=== PATIENT | female | born 1935 | race Caucasian/White ===

== ENCOUNTER → 2016-11-17 | Outpatient (CLI) | payer OTHER | LOC: BMCIMAGING 16:28 | PROVIDERS: ATTEND Family Medicine | DX: M25.512 Pain in left shoulder (principal) ==

== ENCOUNTER 2017-02-24 08:18 | Inpatient (IN) | payer OTHER ==
--- NOTE | 2017-02-24 08:36 | CPEKG ---
Heart Rate: 72 RR Interval: 833 P-R Interval: 232 QRSD Interval: 110 QT Interval: 424 QTC Interval: 465 P Marshall: 38 QRS Marshall: 12 T Wave Marshall: 92 EKG Severity - ABNORMAL ECG - EKG Impression: SINUS RHYTHM EKG Impression: FIRST DEGREE AV BLOCK EKG Impression: NONSPECIFIC INTRAVENTRICULAR CONDUCTION DELAY Electronically Signed By: Peng Hannah 24-Feb-2017 08:49:33
--- NOTE | 2017-02-24 08:49 | EDPHY ---
H & P Stated Complaint: Constant CP since 9pm, getting worse. Time Seen by Provider: 02/24/17 08:31 HPI/ROS: CHIEF COMPLAINT: Chest pain HISTORY OF PRESENT ILLNESS: The patient is an 81-year-old female with no cardiac history who comes to the emergency department complaining of left-sided chest pain that radiates to her back. It began about 12 hours ago. 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 She states that last night at dinner she started to have "spell ". She states that she could think of the right words but could not get them out and simply told her friend she did not feel well and went to bed. The middle the night she began having chest pain. No shortness of breath. No pain with movement. No diaphoresis. No nausea vomiting. She denies any history of cardiac disease. No fevers or cough. She did have the flu, shingles and pneumonia vaccine no altered same time about 3 weeks ago. No recent travel. Nonsmoker. She took 4 baby aspirin at home. REVIEW OF SYSTEMS: Constitutional: denies: chills, fever, recent illness, recent injury EENTM: denies: blurred vision, double vision, nose congestion Respiratory: denies: cough, shortness of breath Cardiac: See HPI Gastrointestinal/Abdominal: denies: abdominal pain, diarrhea, nausea, vomiting, blood streaked stools Genitourinary: denies: dysuria, frequency, hematuria, pain Musculoskeletal: denies: joint pain, muscle pain Skin: denies: lesions, rash, jaundice, bruising Neurological: See HPI denies: headache, numbness, paresthesia, tingling, dizziness, weakness Hematologic/Lymphatic: denies: blood clots, easy bleeding, easy bruising Immunologic/allergic: denies: HIV/AIDS, transplant EXAM: GENERAL: Well-appearing, well-nourished and in no acute distress. HEAD: Atraumatic, normocephalic. EYES: Pupils equal round and reactive to light, extraocular movements intact, sclera anicteric, conjunctiva are normal. ENT: TMs normal, nares patent, oropharynx clear without exudates. Moist mucous membranes. NECK: Normal range of motion, supple without lymphadenopathy or JVD. LUNGS: Breath sounds clear to auscultation bilaterally and equal. No wheezes rales or rhonchi. HEART: Regular rate and rhythm without murmurs, rubs or gallops. ABDOMEN: Soft, nontender, normoactive bowel sounds. No guarding, no rebound. No masses appreciated. BACK: No CVA tenderness, no spinal tenderness, step-offs or deformities EXTREMITIES: Normal range of motion, no pitting or edema. No clubbing or cyanosis. NEUROLOGICAL: Cranial nerves II through XII grossly intact. Normal speech, normal gait. 5/5 strength, normal movement in all extremities, normal sensation PSYCH: Normal mood, normal affect. SKIN: Warm, dry, normal turgor, no visible rashes or lesions. Source: Patient Exam Limitations: No limitations - Personal History Current Tetanus Diphtheria and Acellular Pertussis (TDAP): Yes - Medical/Surgical History Hx Asthma: No Hx Chronic Respiratory Disease: Yes Hx Diabetes: No Hx Cardiac Disease: No Hx Renal Disease: No Hx Cirrhosis: No Hx Alcoholism: No Hx HIV/AIDS: No Hx Splenectomy or Spleen Trauma: No Other PMH: Breast Ca. Lung Ca. - Family History Significant Family History: No pertinent family hx - Social History Smoking Status: Never smoked Alcohol Use: Sober Drug Use: None Constitutional: Initial Vital Signs Heart Rate 77 02/24/17 08:23 Respiratory Rate 20 02/24/17 08:23 Blood Pressure 170/95 H 02/24/17 08:23 O2 Sat (%) 96 02/24/17 08:23 O2 Delivery Mode Room Air Allergies/Adverse Reactions: atorvastatin [From Lipitor] Allergy (Verified 02/24/17 08:50) gabapentin Allergy (Verified 02/24/17 11:30) tramadol [From Ultram] Allergy (Verified 02/24/17 11:30) lyrica Allergy (Uncoded 02/24/17 08:27) zocor Allergy (Uncoded 02/24/17 08:27) Home Medications: Medication Instructions Recorded Cholecalciferol Vit D3 [Vitamin D3 2,000 units PO DAILY 02/24/17 2000 units tab (OTC)] Cyanocobalamin [Vitamin B12 (*)] 1,000 mcg PO DAILY 02/24/17 Docusate Sodium [Colace 100 MG (*)] 100 mg PO HS 02/24/17 Escitalopram Oxalate [Lexapro 10 15 mg PO HS 02/24/17 MG] Melatonin [Melatonin 3 MG (*)] 3 mg PO HS 02/24/17 Mirabegron [Myrbetriq] 50 mg PO DAILY 02/24/17 [place]-3 Fatty Acids [Fish Oil 1000 1,000 each PO DAILY 02/24/17 mg (*)] Omeprazole 40 mg PO HS 02/24/17 Pravastatin Sodium 80 mg PO HS 02/24/17 Vitamin E Acetate [VITAMIN E] 400 unit PO DAILY 02/24/17 Medical Decision Making - Diagnostics EKG Interpretation: An EKG obtained and was read and documented in trace view. Please see trace view for full reading and report. Sinus rhythm, first-degree block, ED Course/Re-evaluation: 10:30 a.m. we discussed the lab and x-ray results. Patient continues to have pain. I recommended admission. I will treat with nitroglycerin. She is receiving a GI cocktail currently. 10:50 a.m. I discussed the case the medical service will admit to the PCU. Differential Diagnosis: Partial list of the Differential diagnosis considered include but were not limited to; acute coronary disease, pleurisy, and although unlikely based on the history and physical exam, I also considered dissection, pneumonia, pneumothorax, PE. - Data Points Laboratory Results: Laboratory Results 02/24/17 08:40 02/24/17 08:40 Medications Given: Acetaminophen (Tylenol) 650 mg PO Q4HRS PRN PRN Reason: Pain, Mild/Fever, Can Take PO Stop: 08/23/17 14:01 Last Admin: 02/25/17 09:21 Dose: 650 mg Cholecalciferol (Vitamin D) 2,000 units PO DAILY MIKE Stop: 08/24/17 08:59 Last Admin: 02/25/17 09:16 Dose: 2,000 units Docusate Sodium (Colace) 100 mg PO HS MIKE Stop: 08/23/17 20:59 Last Admin: 02/24/17 20:40 Dose: 100 mg Escitalopram Oxalate (Lexapro) 15 mg PO HS MIKE Stop: 08/23/17 20:59 Last Admin: 02/24/17 20:40 Dose: 15 mg Hydralazine HCl (Apresoline) 5 mg IVP Q6HRS PRN PRN Reason: SBP Greater Than Stop: 08/23/17 14:10 Last Admin: 02/24/17 22:59 Dose: 5 mg Lisinopril (Zestril) 10 mg PO DAILY MIKE Stop: 08/24/17 12:14 Last Admin: 02/25/17 12:52 Dose: 10 mg Melatonin (Melatonin) 3 mg PO HS MIKE Stop: 08/23/17 20:59 Last Admin: 02/24/17 20:40 Dose: 3 mg Miscellaneous Medication (Vitamin E Acetate [Vitamin E]) 400 unit PO DAILY MIKE Stop: 08/24/17 08:59 Last Admin: 02/25/17 11:27 Dose: 400 units Miscellaneous Medication (Mirabegron [Myrbetriq]) 50 mg PO DAILY MIKE Stop: 08/24/17 08:59 Last Admin: 02/25/17 09:17 Dose: 50 mg Evano-3-Gdat Ethyl Esters (Fish Oil) 1,000 mg PO DAILY MIKE Stop: 08/24/17 08:59 Last Admin: 02/25/17 09:15 Dose: 1,000 mg Pantoprazole Sodium (Protonix) 40 mg PO HS MIKE Stop: 08/23/17 20:59 Last Admin: 02/24/17 20:40 Dose: 40 mg Pravastatin Sodium (Pravachol) 80 mg PO HS [facility] Stop: 08/23/17 20:59 Last Admin: 02/24/17 20:40 Dose: 80 mg Vitamin B Complex (Vitamin B12) 1,000 mcg PO DAILY MIKE Stop: 08/24/17 08:59 Last Admin: 02/25/17 09:15 Dose: 1,000 mcg Discontinued Medications Al Hydroxide/Mg Hydroxide (Maalox Susp) 30 ml PO ONCE ONE Stop: 02/24/17 10:28 Last Admin: 02/24/17 10:29 Dose: 30 ml Aspirin (Aspirin) 81 mg PO DAILY MIKE Stop: 08/24/17 12:14 Last Admin: 02/25/17 12:52 Dose: 81 mg Hydralazine HCl (Apresoline) 25 mg PO ONCE ONE Stop: 02/25/17 00:00 Last Admin: 02/25/17 00:11 Dose: 25 mg Hyoscyamine Sulfate (Levsin, Hyomax-Sl) 0.25 mg PO ONCE ONE Stop: 02/24/17 10:28 Last Admin: 02/24/17 10:29 Dose: 0.25 mg Labetalol HCl (Trandate) 200 mg PO ONCE ONE Stop: 02/25/17 01:39 Last Admin: 02/25/17 01:43 Dose: 200 mg Lidocaine (Lidocaine 2% Viscous) 15 ml PO ONCE ONE Stop: 02/24/17 10:28 Last Admin: 02/24/17 10:29 Dose: 15 ml Nitroglycerin (Nitrostat) 0.4 mg SL Q5M PRN PRN Reason: Chest Pain Last Admin: 02/24/17 11:05 Dose: 0.4 mg Departure - Departure Disposition: [facility] Inpatient Acute Clinical Impression: Chest pain Qualifiers: Chest pain type: unspecified Qualified Code(s): R07.9 - Chest pain, unspecified Condition: Fair
[2017-02-24 08:50] LABS: % IMMATURE GRANULYOCYTES 0.4 % (0.0-1.1); ABSOLUTE IMMATURE GRANULOCYTES 0.03 10^3/uL (0.00-0.10); ADD DIFF? NO; ADD MORPH? NO; ADD SCAN? NO; ATYPICAL LYMPHOCYTE FLAG 10 (0-99); FRAGMENT RBC FLAG 0 (0-99); HEMOGLOBIN 15.2 g/dL (12.6-16.3); LEFT SHIFT FLG 0 (0-99); LIPEMIA HEMOLYSIS FLAG 80 (0-99); MEAN CELL HEMOGLOBIN 30.4 pg (27.9-34.1); MEAN PLATELET VOLUME 9.4 fL (8.7-11.7); PLATELET CLUMPS FLAG 10 (0-99); PLATELET COUNT 255 10^3/uL (150-400); RED CELL DISTRIBUTION WIDTH 13.2 % (11.5-15.2)
[2017-02-24 09:06] LABS: ANION GAP 11 mEq/L (8-16); CALCIUM 10.1 mg/dL (8.5-10.4); CARBON DIOXIDE 27 mEq/l (22-31); CHLORIDE 104 mEq/L (97-110); CREATININE 0.7 mg/dL (0.6-1.0); GLOMERULAR FILTRATION RATE > 60; GLUCOSE 91 mg/dL (70-100); POTASSIUM 4.1 mEq/L (3.5-5.2); SODIUM 142 mEq/L (134-144)
[2017-02-24 09:17] LABS: TROPONIN I < 0.012 ng/mL (0.000-0.034)
[2017-02-24 09:20] LABS: INR 0.92 (0.83-1.16); PROTIME(PATIENT) 12.3 SEC (12.0-15.0)
[2017-02-24 09:21] LABS: APTT 32.4 SEC (23.0-38.0)
[2017-02-24] MEDS ORDERED: MAG HYDROX/AL HYDROX/SIMETH 30 ML UDCUP ONE (10:22)
[2017-02-24] MEDS ORDERED: HYOSCYAMINE SULFATE 0.125 MG TAB ONE (10:22)
[2017-02-24] MEDS ORDERED: LIDOCAINE 2% VISCOUS 15 ML UDCUP ONE (10:23)
[2017-02-24] MEDS ORDERED: HYOSCYAMINE SULFATE 0.125 MG TAB PO ONE (10:27)
[2017-02-24] MEDS ORDERED: MAG HYDROX/AL HYDROX/SIMETH 30 ML UDCUP PO ONE (10:27)
[2017-02-24] MEDS ORDERED: LIDOCAINE 2% VISCOUS 15 ML UDCUP PO ONE (10:27)
[2017-02-24] MEDS ORDERED: NITROGLYCERIN 0.4 MG BTL SL PRN (10:31)
[2017-02-24] MEDS ORDERED: ALBUTEROL 3 ML DEYVIAL IH PRN (14:02)
[2017-02-24] MEDS ORDERED: ONDANSETRON DISINTEGRATING 4 MG TAB PO PRN (14:02)
[2017-02-24] MEDS ORDERED: ONDANSETRON 4 MG/2 ML VIAL IVP PRN (14:02)
[2017-02-24] MEDS ORDERED: hydrALAZINE 20 MG/ML VIAL IVP PRN (14:11)
--- NOTE | 2017-02-24 14:50 | PDGENHP ---
History and Physical - Chief Complaint chest pain - History of Present Illness Pleasant 81 yo female who had transient loss of memory last night followed by chest pain. She went to bed and it got better. She was awaken by the chest pain in the middle of the night and she again went back to bed. It recurred this morning and she went to the E.D. She did not have any focal deficits last night and does not at this time. In the ED, an EKG personally reviewed is c/w SR and first degree block. No ischemia changes. Trop was negative. D-Dimer negative. BP was elevated in the low 200's. She was given Nitro with some improvement of her chest pain but is still mildly present. The cp is left substernal and worse with movement and when pressing on the tissue over it. It does not radiate to jaw, neck, hands. It is non exertional. She denies SOB, palpitations, leg edema, Fever, cough, trauma, or other. No recent travel. Non smoker. no constitutional sx's Took a 4 baby aspirin at home PMHx: breast cancer, small cell lung cancer, GERD, depression, insomnia PSHx: Mastectomy-bilateral Soc: No tobacco, no ETOH FmHx: NC History Information - Allergies/Home Medication List Allergies/Adverse Reactions: atorvastatin [From Lipitor] Allergy (Verified 02/24/17 08:50) gabapentin Allergy (Verified 02/24/17 11:30) tramadol [From Ultram] Allergy (Verified 02/24/17 11:30) lyrica Allergy (Uncoded 02/24/17 08:27) zocor Allergy (Uncoded 02/24/17 08:27) Home Medications: Cholecalciferol Vit D3 [Vitamin D3 2000 units tab (OTC)] 2,000 units PO DAILY [Last Taken 02/23/17] Cyanocobalamin [Vitamin B12 (*)] 1,000 mcg PO DAILY 02/24/17 [Last Taken ] Docusate Sodium [Colace 100 MG (*)] 100 mg PO HS 02/24/17 [Last Taken 02/23/17] Escitalopram Oxalate [Lexapro 10 MG] 15 mg PO HS 02/24/17 [Last Taken 02/23/17] Melatonin [Melatonin 3 MG (*)] 3 mg PO HS 02/24/17 [Last Taken 02/23/17] Mirabegron [Myrbetriq] 25 mg PO DAILY 02/24/17 [Last Taken 02/23/17] [place]-3 Fatty Acids [Fish Oil 1000 mg (*)] 1,000 each PO DAILY 02/24/17 [Last Taken 02/23/17] Omeprazole 40 mg PO HS 02/24/17 [Last Taken 02/23/17] Pravastatin Sodium 80 mg PO HS 02/24/17 [Last Taken 02/23/17] Vitamin E Acetate [VITAMIN E] 400 unit PO DAILY 02/24/17 [Last Taken 02/23/17] I have personally reviewed and updated: medical history, social history - Social History Smoking Status: Never smoked Alcohol Use: Sober Drug Use: None Review of Systems Review of Systems: ROS: 10pt was reviewed & negative except for what was stated in HPI & below Physical Exam Physical Exam: Temp Pulse Resp BP Pulse Ox 36.8 C 68 15 166/83 H 91 L 02/24/17 12:39 02/24/17 12:39 02/24/17 12:39 02/24/17 12:39 02/24/17 12:39 Constitutional: no apparent distress, appears nourished Eyes: PERRL, EOMI Ears, Nose, Mouth, Throat: moist mucous membranes, hearing normal Cardiovascular: regular rate and rhythym, other (reproducible left sided chest pain on palpation), No edema Respiratory: no respiratory distress, no rales or rhonchi, clear to auscultation Gastrointestinal: normoactive bowel sounds, soft, non-tender abdomen, No tenderness, No distension Skin: warm Neurologic: AAOx3 Psychiatric: interacting appropriately, not anxious, not encephalopathic Lab Data & Imaging Review 02/24/17 08:40 02/24/17 08:40 WBC 6.87 10^3/uL (3.80-9.50) 02/24/17 08:40 RBC 5.00 10^6/uL (4.18-5.33) 02/24/17 08:40 Hgb 15.2 g/dL (12.6-16.3) 02/24/17 08:40 Hct 46.0 % (38.0-47.0) 02/24/17 08:40 MCV 92.0 fL (81.5-99.8) 02/24/17 08:40 MCH 30.4 pg (27.9-34.1) 02/24/17 08:40 MCHC 33.0 g/dL (32.4-36.7) 02/24/17 08:40 RDW 13.2 % (11.5-15.2) 02/24/17 08:40 Plt Count 255 10^3/uL (150-400) 02/24/17 08:40 MPV 9.4 fL (8.7-11.7) 02/24/17 08:40 Neut % (Auto) 43.0 % (39.3-74.2) 02/24/17 08:40 Lymph % (Auto) 43.5 % (15.0-45.0) 02/24/17 08:40 [place] % (Auto) 8.7 % (4.5-13.0) 02/24/17 08:40 Eos % (Auto) 3.1 % (0.6-7.6) 02/24/17 08:40 Baso % (Auto) 1.3 % (0.3-1.7) 02/24/17 08:40 Nucleat RBC Rel Count 0.0 % (0.0-0.2) 02/24/17 08:40 Absolute Neuts (auto) 2.95 10^3/uL (1.70-6.50) 02/24/17 08:40 Absolute Lymphs (auto) 2.99 10^3/uL (1.00-3.00) 02/24/17 08:40 Absolute Monos (auto) 0.60 10^3/uL (0.30-0.80) 02/24/17 08:40 Absolute Eos (auto) 0.21 10^3/uL (0.03-0.40) 02/24/17 08:40 Absolute Basos (auto) 0.09 10^3/uL (0.02-0.10) 02/24/17 08:40 Absolute Nucleated RBC 0.00 10^3/uL (0-0.01) 02/24/17 08:40 Immature Gran % 0.4 % (0.0-1.1) 02/24/17 08:40 Immature Gran # 0.03 10^3/uL (0.00-0.10) 02/24/17 08:40 PT 12.3 SEC (12.0-15.0) 02/24/17 08:40 INR 0.92 (0.83-1.16) 02/24/17 08:40 APTT 32.4 SEC (23.0-38.0) 02/24/17 08:40 D-Dimer 0.45 ug/mLFEU (0.00-0.50) 02/24/17 08:40 Sodium 142 mEq/L (134-144) 02/24/17 08:40 Potassium 4.1 mEq/L (3.5-5.2) 02/24/17 08:40 Chloride 104 mEq/L (97-110) 02/24/17 08:40 Carbon Dioxide 27 mEq/l (22-31) 02/24/17 08:40 Anion Gap 11 mEq/L (8-16) 02/24/17 08:40 BUN 14 mg/dL (7-23) 02/24/17 08:40 Creatinine 0.7 mg/dL (0.6-1.0) 02/24/17 08:40 Estimated GFR > 60 02/24/17 08:40 Glucose 91 mg/dL (70-100) 02/24/17 08:40 Calcium 10.1 mg/dL (8.5-10.4) 02/24/17 08:40 Troponin I < 0.012 ng/mL (0.000-0.034) 02/24/17 08:40 Assessment & Plan Assessment: #HTN Urgency #Chest pain, likely atypical, ?muscular. W/U negative thus far #transient memory loss, ?TIA #GERD, chornic: hx does not appear c/w acute GERD episode Plan: -admit -Cardiac w/u -TTE -Tele -check risk factors -check neck doppler -She does not have any focal weakness at this time -May need BP med tomorrow, BB vs YENI-I -For now hold off on stress test, although may consider in the a.m. pending w/u and clinical course -SCDs -Full Code
--- NOTE | 2017-02-24 16:15 | ECHO ---
[email or web address] [address] Main: [phone] Fax: [email or web address] Echocardiogram Name: MARYANNE MONTES DE OCA MR#: [id number] Study Date: 02/24/2017 Study Time: 02:45 PM Date of : 1935 Age: 81 year(s) Height: 165.1 cm (65 in.) Weight: 68.49 kg (151 lb.) BSA: 1.76 m2 Gender: Female Examination: Echo Indication: Chest Pain Image Quality: Contrast: Requested by: Janes Dorman BP: 166 mmHg/83 mmHg Heart Rate: Rhythm: Indication: Chest Pain Procedure Staff Consulting Project Director: Shawna Louis Reading Physician: Bacilio Roland Requesting Provider: Conclusions: Normal size left ventricle. Mild concentric LV hypertrophy. EF is 77 %. The mitral valve is normal in appearance and function. Mild mitral valve regurgitation is present. The aortic valve is tri-leaflet. There is mild thickening of the aortic cusps. Mild to moderate aortic valve regurgitation. Mildly dilated ascending aorta measuring 3.8 cm. No pericardial effusion. Measurements: Chambers Valvular Assessment AV/MV Valvular Assessment TV/PV Normal Normal Normal Name Value Range Name Value Range Name Value Range Ao Neli (MM): 3.3 cm (2.2 cm-3.7 AV meanP mmHg ( - ) cm) MV E Vmax: 0.60 m/s ( - ) IVSd (2D): 1.1 cm (0.6 cm-1.1 MV A Vmax: 0.78 m/s ( - ) cm) MV E/A: 0.77 ( - ) LVDd (2D): 4.6 cm (3.9 cm-5.3 cm) LVDs (2D): 2.7 cm (2.1 cm-4 cm) LVPWd (2D): 1.1 cm ( - ) LVEF (MOD4): 77 % (>=55 %) Continued Measurements: Chambers Valvular Assessment AV/MV Patient: MARYANNE MONTES DE OCA Study Date: 02/24/2017 Page 1 of 2 02:45 PM Name Value Name Value LADs: 3.4 cm MV E/E' Septal: 11.20 LADs Lon.1 cm MV E/E' Lateral: 9.40 LA Area: 12.3 cm2 Additional Vessels Name Value Ao Ascendin.8 cm Findings: Left Ventricle: Normal size left ventricle. Mild concentric LV hypertrophy. Normal global systolic LV function. EF is 77 %. No regional wall motion abnormality. Right Ventricle: Normal size right ventricle. Left Atrium: The left atrium is normal in size. Right Atrium: The right atrium is normal in size. Mitral Valve: The mitral valve is normal in appearance and function. Mild mitral valve regurgitation is present. Aortic Valve: The aortic valve is tri-leaflet. There is mild thickening of the aortic cusps. Mild to moderate aortic valve regurgitation. Tricuspid Valve: The tricuspid valve is normal in appearance and function. Mild tricuspid regurgitation is present. Pulmonic Valve: The pulmonic valve is normal in appearance and function. Aorta: The aorta is normal. Mildly dilated ascending aorta measuring 3.8 cm. Pericardium: No pericardial effusion. (No Signature Object) Patient: MARYANNE MONTES DE OCA Study Date: 02/24/2017 Page 2 of 2 02:45 PM [id number]
[2017-02-24] MEDS: PRAVASTATIN SODIUM 40 MG TAB PO SCH (20:40)
[2017-02-24] MEDS: PANTOPRAZOLE SODIUM 40 MG TAB PO SCH (20:40)
[2017-02-24] MEDS: ESCITALOPRAM OXALATE 10 MG TAB PO SCH (20:40)
[2017-02-24] MEDS: MELATONIN 3 MG TAB PO SCH (20:40)
[2017-02-24] MEDS: DOCUSATE SODIUM 100 MG CAP PO SCH (20:40)
[2017-02-24] MEDS ORDERED: NON-FORMULARY NEW DRUG (Omeprazole [Omeprazole] 40 MG) PO SCH (21:00)
[2017-02-24] MEDS ORDERED: NON-FORMULARY NEW DRUG (Pravastatin Sodium [Pravastatin Sodium] 80 MG) PO SCH (21:00)
[2017-02-24] MEDS ORDERED: hydrALAZINE 25 MG TAB PO ONE (23:59)
[2017-02-25] MEDS ORDERED: LABETALOL HCL 200 MG TAB PO ONE (01:38)
[2017-02-25 05:12] LABS: % IMMATURE GRANULYOCYTES 0.4 % (0.0-1.1); ABSOLUTE IMMATURE GRANULOCYTES 0.03 10^3/uL (0.00-0.10); ADD DIFF? NO; ADD MORPH? NO; ADD SCAN? NO; ATYPICAL LYMPHOCYTE FLAG 10 (0-99); FRAGMENT RBC FLAG 0 (0-99); HEMATOCRIT 41.5 % (38.0-47.0); LEFT SHIFT FLG 0 (0-99); LIPEMIA HEMOLYSIS FLAG 80 (0-99); MEAN CELL HEMOGLOBIN CONCENTR. 33.7 g/dL (32.4-36.7); MEAN CELL VOLUME 91.8 fL (81.5-99.8); MEAN PLATELET VOLUME 9.8 fL (8.7-11.7); PLATELET CLUMPS FLAG 10 (0-99); PLATELET COUNT 237 10^3/uL (150-400); RED BLOOD CELL COUNT 4.52 10^6/uL (4.18-5.33); RED CELL DISTRIBUTION WIDTH 13.2 % (11.5-15.2)
[2017-02-25 05:40] LABS: ANION GAP 9 mEq/L (8-16); CALCIUM 9.8 mg/dL (8.5-10.4); CARBON DIOXIDE 25 mEq/l (22-31); CHLORIDE 104 mEq/L (97-110); CHOLESTEROL 178 mg/dL (140-220); CHOLESTEROL/HDL RATIO 3.96 RATIO (1.00-4.44); CREATININE 0.8 mg/dL (0.6-1.0); GLOMERULAR FILTRATION RATE > 60; GLUCOSE 144 mg/dL (70-100); HIGH DENSITY LIPOPROTEIN 45 mg/dL (40-85); LDL/HDL RATIO 2.18 RATIO (1.00-3.22); LOW DENSITY LIPOPROTEIN 98 mg/dL (80-100); MAGNESIUM 2.1 mg/dL (1.6-2.3); NON-HIGH DENSITY LIPOPROTEIN 133 mg/dL (90-129); POTASSIUM 4.1 mEq/L (3.5-5.2); SODIUM 138 mEq/L (134-144); TRIGLYCERIDE 176 mg/dL (35-135); VERY LOW DENSITY LIPOPROTEINS 35 mg/dL (8-25)
[2017-02-25 05:45] LABS: TROPONIN I < 0.012 ng/mL (0.000-0.034)
--- NOTE | 2017-02-25 08:43 | CPEKG ---
Heart Rate: 71 RR Interval: 845 P-R Interval: 200 QRSD Interval: 116 QT Interval: 412 QTC Interval: 448 P [place]: 0 QRS [place]: 47 T Wave [place]: 88 EKG Severity - ABNORMAL ECG - EKG Impression: SINUS RHYTHM EKG Impression: INCOMPLETE RIGHT BUNDLE BRANCH BLOCK Electronically Signed By: William Altman 25-Feb-2017 15:56:40
[2017-02-25] MEDS ORDERED: NON-FORMULARY NEW DRUG (Mirabegron [Myrbetriq] 25 MG) PO SCH (09:00)
[2017-02-25] MEDS ORDERED: VITAMIN E ACETATE 400 UNIT PO SCH (09:00)
[2017-02-25] MEDS: CYANO/VITAMIN B12 1000 MCG TAB PO SCH (09:15)
[2017-02-25] MEDS: OMEGA-3 FATTY ACIDS 1,000 MG CAP PO SCH (09:15)
[2017-02-25] MEDS: CHOLECALCIFEROL VIT D3 2,000 UNITS TAB/CAP PO SCH (09:16)
[2017-02-25] MEDS: Mirabegron [Myrbetriq] 50 MG PO SCH (09:17)
[2017-02-25] MEDS: ACETAMINOPHEN 325 MG TAB PO PRN ×2 (09:21→21:04)
[2017-02-25 09:56] LABS: HEMOGLOBIN A1C 5.8 % (4.0-6.0)
[2017-02-25] MEDS: Vitamin E 400 UNIT PO SCH (11:27)
[2017-02-25] MEDS ORDERED: ASPIRIN 81 MG CHEWABLE TAB PO SCH (12:15)
--- NOTE | 2017-02-25 12:20 | HOSPPROG ---
Hospitalist Progress Note Assessment/Plan: 81 yo female admited for HTN urgency and chest pain. Cardiac w/u has been negative. Corotid US shows mild to moderate atherosclerosis. She does not have focal deficits. Last night she had HTN and then hypotension after BP meds were given #HTN Urgency #Chest pain, likely atypical, ?muscular. W/U negative thus far #transient memory loss, ?TIA #GERD, chornic: hx does not appear c/w acute GERD episode #HLD, on statin Plan: -will schedule Lisinopril 10mg daily. Her repeat BP this morning is in the 130' s systolic. -start Aspirin -hold off on stress test. She does not have any cp or SOB at this time. Negative trops. Her son in law is a retired cardio thoracic surgeon. I am waiting for a call back from him for discussion around this -Cont statin, LDL less than 100 -Keep overnight for BP mgmt, make inpatient -SCDs -Full Code Subjective: No CP or SOB. NO new memory issues. BP elevated last night. Became hypotensive after 3 meds provided. Objective: Vital Signs Temp Pulse Resp BP Pulse Ox 36.7 C 87 13 109/55 L 94 02/25/17 07:24 02/25/17 07:24 02/25/17 07:24 02/25/17 07:24 02/25/17 07:24 Laboratory Results 02/25/17 04:10 02/25/17 04:10 02/24/17 02/25/17 02/26/17 05:59 05:59 05:59 Intake Total 300 Output Total 1300 Balance -1000 PT 12.3 SEC (12.0-15.0) 02/24/17 08:40 INR 0.92 (0.83-1.16) 02/24/17 08:40 - Physical Exam Constitutional: no apparent distress Eyes: PERRL, EOMI Ears, Nose, Mouth, Throat: moist mucous membranes, hearing normal Cardiovascular: regular rate and rhythym, No edema Respiratory: no respiratory distress, no rales or rhonchi, clear to auscultation Gastrointestinal: normoactive bowel sounds, soft, non-tender abdomen Skin: warm Neurologic: AAOx3 Psychiatric: interacting appropriately, not anxious, not encephalopathic ICD10 Worksheet Patient Problems: Problems Problem Status Onset Chest pain Acute
[2017-02-25] MEDS: LISINOPRIL 10 MG TAB PO SCH (12:52)
--- NOTE | 2017-02-25 14:37 | ASMTCASEMG ---
Living Arrangements What is your living Answers: Alone arrangement? Who do you live with? Type Of Residence What kind of residence do Answers: House you live in? Discharge Plan Comments Coordination Status Comments Notes: Pt is 81 y/o female admitted w/ chest pain. Pt lives at [facility]. PT has been ordered and awaiting recommendations. CM will most likely d/c independently w/out any needs. CM available for changes. Date Signed: 02/25/2017 02:36 PM Electronically Signed By:MARCUS Escamilla
--- NOTE | 2017-02-25 15:56 | PDMN ---
Medical Necessity Medical necessity: Change to IP, as of 02/25/17, per MD; los >2 mn for ongoing management/tx of hypertensive urgency/blood pressure management, chest pain & transient memory loss; hx breast cancer, small cell lung cancer, GERD; per progress note & order 02/25/17
[2017-02-25] MEDS: ESCITALOPRAM OXALATE 10 MG TAB PO SCH (20:46)
[2017-02-25] MEDS: PRAVASTATIN SODIUM 40 MG TAB PO SCH (20:47)
[2017-02-25] MEDS: PANTOPRAZOLE SODIUM 40 MG TAB PO SCH (20:47)
[2017-02-25] MEDS: MELATONIN 3 MG TAB PO SCH (20:47)
[2017-02-25] MEDS: DOCUSATE SODIUM 100 MG CAP PO SCH (21:04)
[2017-02-26] MEDS: CHOLECALCIFEROL VIT D3 2,000 UNITS TAB/CAP PO SCH (07:33)
[2017-02-26] MEDS: CYANO/VITAMIN B12 1000 MCG TAB PO SCH (07:33)
[2017-02-26] MEDS: LISINOPRIL 10 MG TAB PO SCH (07:33)
[2017-02-26] MEDS: OMEGA-3 FATTY ACIDS 1,000 MG CAP PO SCH (07:33)
[2017-02-26] MEDS: Vitamin E 400 UNIT PO SCH (07:34)
[2017-02-26] MEDS: Mirabegron [Myrbetriq] 50 MG PO SCH (07:34)
[2017-02-26 07:38] VITALS: O2SAT 91
[2017-02-26 12:02] VITALS: PULSE 67; RESP 10; TEMP 97.7
[2017-02-26] MEDS: ACETAMINOPHEN 325 MG TAB PO PRN (13:19)
[2017-02-26 13:44] VITALS: BP 132/69
--- NOTE | 2017-02-26 15:01 | PDDCSUM ---
Discharge Summary Discharge Summary: 81 yo female admited for HTN urgency and chest pain. Cardiac w/u is negative and she has not had Chest pain since admission. . Carotid US shows mild to moderate atherosclerosis. She does not have focal deficits. She was started on Lisinopril 10mg daily for HTN and her BP has responded appropriately. She will f/u with her PCP in one week DDX: #HTN Urgency #Chest pain (resolved), likely atypical, ?muscular. W/U negative #transient memory loss, ?TIA. cannot start an Aspiring due to a hx of bleeding disorder #Bleeding disorder, possibly Von Willebrand disease #GERD, chornic: hx does not appear c/w acute GERD episode #HLD, on statin Exam: NAD AAOX3 RRR CTA B S/NT/ND NO EDEMA MEDS: SEE MED REC. LISINOPRIL STARTED PER ABOVE TOTAL TIME SPENT ON DISCHARGE IS 35 MINS
--- NOTE | 2017-02-26 15:51 | ASDISCHSUM ---
Discharge Information Plan Status:Home with No Needs Medically Cleared to Leave:02/25/2017 Discharge Date:02/26/2017 03:14 PM CM D/C Disposition:Home, Routine, Self-Care ADT D/C Disposition:Home, Routine, Self-Care Projected Discharge Date:02/26/2017 03:14 PM Transportation at D/C:Family Discharge Delay Reason: Follow-Up Date:02/26/2017 03:14 PM Discharge Slot: Final Diagnosis: Placement Information Patient Contact Information Contact Name:KEM Relationship:Daughter Address: City: [facility] [place] Phone: [facility] Connection Code: Email: Financial Information Financial Class: Primary Plan Desc:MEDICARE INPATIENT Primary Plan Number:[id number] Secondary Plan Desc:[employer] Secondary Plan Number:[id number] Assessment Information [facility] Initial CM Assessment Living Arrangements What is your living Answers: Alone arrangement? Who do you live with? Type Of Residence What kind of residence do Answers: House you live in? Discharge Plan Comments Coordination Status Comments Notes: Pt is 81 y/o female admitted w/ chest pain. Pt lives at [facility]. PT has been ordered and awaiting recommendations. CM will most likely d/c independently w/out any needs. CM available for changes. Date Signed: 02/25/2017 02:36 PM Electronically Signed By:MARCUS Escamilla Intervention Information Intervention Type:*Occurence 72 Date of Service:02/24/2017 02:03 PM Patient Type:Inpatient Staff Member:MONTSERRAT Don Shelly Hours:0.25 Discipline: Severity:1 (0-1 Hours) Comment:Occ 72 for 02/24/2017 14:03-02/25/2017 12:22 as patient discharged 02/26/2017 14:56 (< 2 MN LOS after patient admission status changed observation to inpatient).
== END 2017-02-26 15:14 | disposition home or self-care (01) | DRG 305 ==
LOC: EEVIPCON 08:18 → F2W 12:35 → OBSVTOIN 02-25 12:22
PROVIDERS: ADMIT Family Medicine; ATTEND Family Medicine
DX: I16.0 Hypertensive urgency (principal); R07.89 Other chest pain; R41.3 Other amnesia; D68.0 Von Willebrand disease; I65.29 Occlusion and stenosis of unspecified carotid artery; K21.9 Gastro-esophageal reflux disease without esophagitis; E78.5 Hyperlipidemia, unspecified; F32.9 Major depressive disorder, single episode, unspecified; G47.00 Insomnia, unspecified; Z85.118 Personal history of other malignant neoplasm of bronchus and lung; Z85.3 Personal history of malignant neoplasm of breast; Z92.3 Personal history of irradiation
CPT/HCPCS: 97161-GP; G0378; G8978-GP-CI; G8979-GP-CI; G8980-GP-CI; J0360

== ENCOUNTER 2017-04-12 06:32 | Inpatient (IN) | payer OTHER ==
[~2017-04-12 06:32] MED LIST: ACETAMINOPHEN 500 MG TAB PO ONE; PREGABALIN 150 MG CAP PO ONE; ROPIVACAINE 0.2% 80 MG, EPINEPHrine 0.2 MG, KETOROLAC TROMETHAMINE 30 MG, morphINE 10 M... IU ONE; TRANEXAMIC ACID 3,000 MG in NS 50 ML IRR ONE; ceFAZolin 2 GM/SWFI 2 GM/20 ML SYR IVP ONE
--- NOTE | 2017-04-12 07:15 | PDHPUP ---
History & Physical Update H&P update statement: This history and physical update is based on an assessment of the patient which was completed after admission or registration (within 24 hours), but prior to the surgery/procedure. H&P update: H&P reviewed & patient examined, no change in patient's condition since H&P completed
[2017-04-12] MEDS ORDERED: ceFAZolin 2 GM/SWFI 2 GM/20 ML SYR IVP ONE (07:34)
[2017-04-12] MEDS ORDERED: ACETAMINOPHEN 500 MG TAB PO ONE (07:34)
[2017-04-12] MEDS ORDERED: DESMOPRESSIN ACETATE 20 MCG in NS 50 ML IV ONE (08:30)
[2017-04-12] MEDS ORDERED: BUPIVACAINE/EPI 0.5% 30 ML SDV ONE (09:06)
[2017-04-12] MEDS ORDERED: THROMBIN (BOVINE) 5,000 UNIT VIAL TP ONE (09:06)
[2017-04-12] MEDS ORDERED: POLYMYXIN B SULFATE 500,000 UNIT/10 ML SYR IRR ONE (09:07)
[2017-04-12] MEDS ORDERED: CALCIUM CHLORIDE 1 GM/10 ML INJ ONE (09:07)
[2017-04-12] MEDS ORDERED: BACITRACIN 50,000 UNITS/10 ML SYR IRR ONE (09:08)
[2017-04-12] MEDS ORDERED: LR 1,000 ML IV ONE (09:24)
[2017-04-12] MEDS ORDERED: TRANEXAMIC ACID 3,000 MG/50 ML BAG IRR ONE (10:09)
--- NOTE | 2017-04-12 10:09 | PDANEPAE ---
ANE History of Present Illness 81 yo F w OA here for L TKA ANE Past Medical History - Cardiovascular History Hx Hypertension: Yes Hx Arrhythmias: No Hx Chest Pain: No Hx Coronary Artery / Peripheral Vascular Disease: No Hx CHF / Valvular Disease: No Hx Palpitations: No Cardiovascular History Comment: Von Willebrand's .New onset of HTN dx -. - Pulmonary History Hx COPD: No Hx Asthma/Reactive Airway Disease: No Hx Recent Upper Respiratory Infection: No Hx Oxygen in Use at Home: No Hx Sleep Apnea: No Sleep Apnea Screening Result - Last Documented: Negative Pulmonary History Comment: prone to bronchitis - Neurologic History Hx Cerebrovascular Accident: No Hx Seizures: No Hx Dementia: No Neurologic History Comment: H/A hx-"rec'd shots into skull for H/A". 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 - Cancer History Hx Cancer: Yes Cancer History Comment: small cell lung CA ',R breast CA - Congenital Disorder History Hx Congenital Disorders: No - GI History Hx Gastrointestinal Disorders: Yes Gastrointestinal History Comment: hx of heartburn - Other Health History Other Health History: OA L knee. bruises easily. Von Willebrands- PCP: Dr Filiberto Montes at [facility] [phone] - Chronic Pain History Chronic Pain: No - Surgical History Prior Surgeries: rotator cuff repair. bilat mastectomies. bladder sling x3. back surgery. hysterectomy. appy. tonsillectomy ANE Review of Systems Review of Systems: - Exercise capacity METS (RN): 4 METS ANE Patient History - Allergies Allergies/Adverse Reactions: hydrocodone Allergy (Mild, Verified 04/12/17 08:28) Other-Enter Comments lisinopril Allergy (Mild, Verified 04/12/17 08:00) Rash atorvastatin [From Lipitor] Allergy (Verified 03/21/17 10:17) gabapentin Allergy (Verified 03/21/17 10:17) Other-Enter Comments pregabalin [From Lyrica] Allergy (Verified 03/30/17 09:12) simvastatin [From Zocor] Allergy (Verified 03/30/17 09:12) tramadol [From Ultram] Allergy (Verified 03/21/17 10:17) Unknown - Home Medications Home medications: home medication list seen and reviewed Home Medications: Cholecalciferol Vit D3 [Vitamin D3 2000 units tab (OTC)] 2,000 units PO DAILY [Last Taken 04/05/17] Cyanocobalamin [Vitamin B12 (*)] 1,000 mcg PO DAILY 02/24/17 [Last Taken ] Docusate Sodium [Colace 100 MG (*)] 100 mg PO HS 02/24/17 [Last Taken 04/11/17] Escitalopram Oxalate [Lexapro 10 MG] 15 mg PO HS 02/24/17 [Last Taken 04/11/17] Melatonin [Melatonin 3 MG (*)] 3 mg PO HS 02/24/17 [Last Taken 04/11/17] Mirabegron [Myrbetriq] 50 mg PO DAILY 02/24/17 [Last Taken 04/11/17] [place]-3 Fatty Acids [Fish Oil 1000 mg (*)] 1,000 each PO DAILY 02/24/17 [Last Taken 04/05/17] Omeprazole 40 mg PO HS 02/24/17 [Last Taken 04/11/17] Herbals/Supplements -Info Only 1 ea PO DAILY 03/22/17 [Last Taken 04/05/17] Pravastatin Sodium 40 mg PO HS 03/22/17 [Last Taken 04/11/17] amLODIPine BESYLATE [Norvasc 10 mg (*)] 10 mg PO DAILY 03/29/17 [Last Taken ] - NPO status NPO Status: no food or drink >8 hours NPO Since - Liquids (Date): 04/12/17 NPO Since - Liquids (Time): 05:00 NPO Since - Solids (Date): 04/11/17 NPO Since - Solids (Time): 18:00 - Anes Hx Anes Hx: no prior problems - Smoking Hx Smoking Status: Never smoked - Alcohol Use Alcohol Use: None - Family Anes Hx Family Anes Hx: none ANE Labs/Vital Signs - Vital Signs Blood Pressure: 127/83 Heart Rate: 86 Respiratory Rate: 16 O2 Sat (%): 92 Height: 166.37 cm Weight: 68.039 kg ANE Physical Exam - Airway Neck exam: FROM Mallampati Score: Class 2 Mouth exam: normal dental/mouth exam - Pulmonary Pulmonary: no respiratory distress, clear to auscultation - Cardiovascular Cardiovascular: regular rate and rhythym, no murmur, rub, or gallop - ASA Status ASA Status: III ANE Anesthesia Plan Anesthesia Plan: GA with mask, spinal Regional Anesthesia: single shot NB, adductor canal FNB
[2017-04-12] MEDS ORDERED: PROPOFOL/EMULSION 500 MG/50 ML BOTTLE IV ONE (10:24)
[2017-04-12] MEDS ORDERED: PHENYLEPHRINE HCL 100 MCG/ML SYR ONE (11:07)
[2017-04-12] MEDS ORDERED: ROPIVACAINE HCL 150 MG/30 ML INJ ONE (11:18)
[2017-04-12] MEDS ORDERED: clonIDINE 1 MG/10 ML VIAL EP ONE (11:19)
[2017-04-12] MEDS ORDERED: PROPOFOL 200 MG/20 ML VIAL ONE (12:03)
[2017-04-12] MEDS ORDERED: fentaNYL 100 MCG/2 ML INJ IVP PRN (12:10)
[2017-04-12] MEDS ORDERED: ONDANSETRON 4 MG/2 ML VIAL IVP PRN ×2 (12:10→12:29)
[2017-04-12] MEDS ORDERED: OXYCODONE/APAP 5/325 TAB PO PRN (12:10)
[2017-04-12] MEDS ORDERED: NALOXONE HCL 0.4 MG/ML INJ IVP PRN (12:10)
[2017-04-12] MEDS ORDERED: HYDROmorphONE/DILAUDID 1 MG/ML INJ IVP PRN (12:10)
[2017-04-12] MEDS ORDERED: CYCLOBENZAPRINE 10 MG TAB PO PRN (12:29)
[2017-04-12] MEDS ORDERED: POLYETHYLENE GLYCOL 3350 17 GM PKT PO PRN (12:29)
[2017-04-12] MEDS ORDERED: LACTULOSE 20 GM/30 ML UDCUP PO PRN (12:29)
[2017-04-12] MEDS ORDERED: PROMETHAZINE HCL 25 MG/ML INJ IVP PRN (12:29)
[2017-04-12] MEDS ORDERED: BISACODYL 10 MG SUPP PR PRN (12:29)
[2017-04-12] MEDS ORDERED: DIPHENOXYLATE/ATROPINE LOMOTIL 1 TAB PO PRN (12:29)
[2017-04-12] MEDS ORDERED: PROMETHAZINE HCL 25 MG SUPPR PR PRN (12:29)
[2017-04-12] MEDS ORDERED: MAGNESIUM HYDROXIDE 30 ML UDCUP PO PRN (12:29)
[2017-04-12] MEDS ORDERED: METOCLOPRAMIDE 10 MG/2 ML VIAL IVP PRN (12:29)
[2017-04-12] MEDS ORDERED: ONDANSETRON DISINTEGRATING 4 MG TAB PO PRN (12:29)
[2017-04-12] MEDS ORDERED: TEMAZEPAM 15 MG CAP PO PRN (12:29)
--- NOTE | 2017-04-12 12:29 | POSTOPPROG ---
Post Op Note Date of Operation: 04/12/17 Surgeon: Renae Jimenez Chief Load Dispatcher: coltrain Anesthesiologist: anil Anesthesia: Epidural, IV Sedation Pre-op Diagnosis: l knee oa Procedure: l tkr Inf/Abcess present in the surg proc area at time of surgery?: No Depth: Deep Incisional (Fascial) EBL: 100-500
[2017-04-12] MEDS ORDERED: LR 1,000 ML IV SCH (12:30)
[2017-04-12] MEDS ORDERED: ONDANSETRON 4 MG/2 ML VIAL ONE (13:10)
--- NOTE | 2017-04-12 13:29 | GOP ---
[f rep st] OPERATIVE REPORT DATE OF OPERATION: 04/12/2017 SURGEON: Renae Jimenez MD OPERATIONAL RISK MANAGER: Skyler Dias, CSFA, LSA, whose presence was medically necessary. ANESTHESIA: By epidural nerve block with IV sedation. PREOPERATIVE DIAGNOSIS: Left knee osteoarthritis. POSTOPERATIVE DIAGNOSIS: Left knee osteoarthritis. PROCEDURE PERFORMED: Left total knee arthroplasty. FINDINGS: INDICATIONS: This is an 81-year-old female with a long history of left knee pain worsening with use and with time, with increasing varus deformity. She has tried multiple conservative methods to allev iate her symptomatology but has failed. She was bone on bone osteoarthritic changes medial compartmen t. She wishes to have surgery in order to resolve the problem. DESCRIPTION OF PROCEDURE: Patient brought to the operating room after the left side had been identif ied as the correct side by the patient, nurse and physician. Once in the operating room, she was give n an epidural nerve block and then given sedation. She was placed supine on the operating room table. A tourniquet was placed around the upper portion of the left leg and the left lower extremity steri dmitry prepped and draped in the usual fashion using GSI solution. Once prepped and draped, limb was e xsanguinated, tourniquet inflated to 250 mmHg. Incision was made 1 handbreadth above the patella, wi th sharp dissection carried down through the skin and subcutaneous layers. Bleeding controlled using electrocautery. A medial parapatellar incision was made through the extensor mechanism with patella brought to the side but not everted. The medial and lateral meniscus as well as the ACL were removed . She was noted to have cpfa-mb-annn osteoarthritic changes of the medial compartment and grade 3 ch ondral changes to the patellofemoral and lateral compartments. Drill hole was made 1 cm anterior to the intercondylar notch with an intramedullary guide placed within the femoral tunnel, was set at 6 d egrees of valgus and set to remove 10 mm of bone. Once in place, end cutting guide was pinned into p lace. The intramedullary guide was removed. An oscillating saw was used to remove the distal portio n of the femur. Once achieving a flat cut, a sizing guide was placed on the cut surface of the femur and then a size 5 seemed to fit best without notching the anterior cortex. Therefore, drill holes we re made ans size five 4 in 1 cutting block was put into place. The anterior, posterior and chamfer c uts were made and a size 5 trial was put into place. The knee was able to achieve full extension, jorge ggesting an ample amount of bone had been taken. The trial prosthetic was centered on the femur and l ug holes were drilled for the femoral component. The trial was then removed. The knee brought to ma ximal flexion with the tibia subluxed anteriorly and an external tibial guide was put into place, set in neutral varus valgus and slight posterior slope. It was pinned into place and a drop naima was the n placed after the external guide had been removed. The drop naima revealed proper positioning. A lock ing pin was placed in the cutting block. Oscillating saw was used to remove the proximal portion of the tibia. Once achieving flat cut, a trial femoral component, tibial component with trial liner was placed within the knee. The knee was able to achieve full extension suggesting adequate amount had be en removed. Therefore, the pins were removed from the tibia. Both tibial sizes were put into place, noted a size 4 seemed to fit best, was placed in slight external rotation and pinned into place. Smo kestack was placed within there and a keel punch passed through the proximal tibia. Once the keel pun ch had been passed, then the press fit guide was put into place and drill holes were made for the pre ss-fit portion. Once completed, attention was turned to the patella which was brought to full extensi on. Patella was then everted, was measured to be 24 mm in thickness. Oscillating saw was used with posterior portion of the patella, leaving 14 mm of bone. Multiple sizes were trialed on the cut surf kurt of bone and a 32 mm button seemed to fit best and lug holes drilled for 32 mm button. Once in cayetano ce, a size 4 triathlon Tritanium tibial component was put into place and then a size 5 left cruciate retaining triathlon press-fit component was put into place and noted to fit securely. A trial liner was placed in the tibial tray. The knee was able to achieve full extension. A 32 mm asymmetric brown llar press-fit button was put into place, noted to fit securely. Multiple trials were placed within the tibial tray. The size 9 seemed to fit best. Therefore, a 9 mm size 4 X3 triathlon polyethylene component was put in place and noted to fit securely. The tourniquet was released at 52 minutes. Bl eeding was controlled using electrocautery. The joint cocktail was injected in the posterior portion of the capsule as well as the periosteum of the femur and the tibia. The wound was thoroughly irrig ated with tranexamic acid. The knee was then closed using 0 Vicryl suture in [id number] type sti tch for the extensor mechanism, with plasma gel placed intra-articularly, 4-0 Vicryl, 2-0 Vicryl sutu res were used to close subcutaneous layers and a 3-0 V-Loc suture in a running subcuticular stitch wa s used to close the skin. The wound was dressed with Steri-Strips, Xeroform, 4 x 4's, wrapped in Ker lix. The leg was completely undraped in the operating room. Tourniquet was removed from the thigh, and an Kurt wrap placed around the knee. The patient was then transferred onto a stretcher, and sent t o recovery room in good condition. TOURNIQUET TIME: 52 minutes. /[id number]/MODL
[2017-04-12] MEDS ORDERED: ceFAZolin 2 GM/DEXTROSE 100 ML IV SCH (14:00)
[2017-04-12] MEDS: oxyCODONE IR 5 MG TAB PO PRN (14:38)
--- NOTE | 2017-04-12 17:04 | POSTANESTH ---
Post Anesthetic Evaluation Cardiovascular Status: Normal, Stable, Similar to Pre-Op Cond Respiratory Status: Normal, Stable, Similar to Pre-op Cond. Level of Consciousness/Mental Status: Can Participate in Eval, Alert and Oriented Pain Control: Adequate, Prn Tx Ordered Nausea/Vomiting Control: Adequate, Prn Tx Ordered Complications Possibly Related to Anesthesia: None Noted
[2017-04-12] MEDS: ACETAMINOPHEN 325 MG TAB PO SCH ×2 (18:01→23:39)
[2017-04-12] MEDS: KETOROLAC 30 MG/1 ML SDV IVP SCH ×2 (18:02→23:40)
[2017-04-12] MEDS: ceFAZolin 2 GM/SWFI 2 GM/20 ML SYR IVP SCH (19:54)
[2017-04-12] MEDS: PRAVASTATIN SODIUM 40 MG TAB PO SCH (19:55)
[2017-04-12] MEDS: FAMOTIDINE 20 MG TAB PO SCH (19:55)
[2017-04-12] MEDS: ESCITALOPRAM OXALATE 10 MG TAB PO SCH (19:55)
[2017-04-12] MEDS: SENNOSIDES/DOCUSATE SODIUM TAB PO SCH (19:55)
[2017-04-12] MEDS: PANTOPRAZOLE SODIUM 40 MG TAB PO SCH (19:55)
[2017-04-12] MEDS ORDERED: NON-FORMULARY NEW DRUG (Omeprazole [Omeprazole] 40 MG) PO SCH (21:00)
[2017-04-13] MEDS: ceFAZolin 2 GM/SWFI 2 GM/20 ML SYR IVP SCH (04:11)
[2017-04-13] MEDS: ACETAMINOPHEN 325 MG TAB PO SCH ×4 (06:02→22:46)
[2017-04-13] MEDS: KETOROLAC 30 MG/1 ML SDV IVP SCH ×4 (06:02→22:48)
[2017-04-13] MEDS: FAMOTIDINE 20 MG TAB PO SCH ×2 (08:16→19:59)
[2017-04-13] MEDS: SENNOSIDES/DOCUSATE SODIUM TAB PO SCH ×2 (08:18→19:59)
[2017-04-13] MEDS: Mirabegron [Myrbetriq] 50 MG PO SCH (08:18)
[2017-04-13] MEDS: oxyCODONE IR 5 MG TAB PO PRN ×2 (08:20→15:48)
[2017-04-13] MEDS: traMADol 50 MG TAB PO SCH (11:40)
--- NOTE | 2017-04-13 14:23 | ASMTCMCOM ---
CM Note CM Note Notes: Today PT rec SNF; provided SNF list to pt and dghtr they will consult friends/family, dghtr may tour and let CM know SNF choice. Pt resides at [facility] at [facility] [address], has had [facility] in past. CM to follow. Date Signed: 04/13/2017 02:23 PM Electronically Signed By:CARLOS Palomino
--- NOTE | 2017-04-13 18:20 | SOAPPROG ---
SOAP Progress Note Assessment/Plan: Assessment: Plan: Subjective: did okk in pt but getting increasing pain dressing intact with mild bleeding noted foot NVI cont PT and pain meds with an emphasis on nucynta rather than narcotics Objective: Vital Signs Temp Pulse Resp BP Pulse Ox 36.9 C 81 16 105/50 L 92 04/13/17 15:20 04/13/17 15:20 04/13/17 15:20 04/13/17 15:20 04/13/17 15:20 Laboratory Results 04/13/17 05:15 04/12/17 04/13/17 04/14/17 05:59 05:59 05:59 Intake Total 1855 900 Output Total 700 350 Balance 1155 550 ICD10 Worksheet Patient Problems: Problems Problem Status Onset Chest pain Acute
[2017-04-13] MEDS: ESCITALOPRAM OXALATE 10 MG TAB PO SCH (19:59)
[2017-04-13] MEDS: PANTOPRAZOLE SODIUM 40 MG TAB PO SCH (19:59)
[2017-04-13] MEDS: PRAVASTATIN SODIUM 40 MG TAB PO SCH (19:59)
[2017-04-13] MEDS: diphenhydrAMINE 25 MG CAP PO PRN (22:46)
[2017-04-14] MEDS: oxyCODONE IR 5 MG TAB PO PRN ×2 (03:35→12:32)
[2017-04-14] MEDS: ACETAMINOPHEN 325 MG TAB PO SCH ×4 (06:18→23:08)
[2017-04-14] MEDS: KETOROLAC 30 MG/1 ML SDV IVP SCH ×4 (06:19→23:07)
[2017-04-14] MEDS: TAPENTADOL HCL 50 MG TAB PO PRN (10:34)
[2017-04-14] MEDS: FAMOTIDINE 20 MG TAB PO SCH ×2 (10:35→23:09)
[2017-04-14] MEDS: SENNOSIDES/DOCUSATE SODIUM TAB PO SCH ×2 (10:35→23:08)
--- NOTE | 2017-04-14 12:28 | GCON ---
[f rep st] CONSULTATION HEMATOLOGY CONSULTATION. DATE OF CONSULTATION: 04/14/2017 REASON FOR CONSULTATION: Type 1 von Willebrand's disease. HISTORY OF PRESENT ILLNESS: Lillie is an 81-year-old woman who is followed by my partner, Dr. Mahendra Perkins. She recently moved to [place] from [place], [place]. She was diagnosed with von Willebrand's disease several years ago prior to her requiring a bilateral mastectomy for breast cancer. She has been given DDAVP prior to mastectomy, dental surgery and a bladder sling surgery. She tolerates DDAVP well and has only required a single dose prior to each operation. Her recent von Willebrand's panel revealed essentially normal factor 8 levels as well as a normal level of von Willebrand's factor antigen and activity. Lillie was recently admitted to the hospital for an elective left total knee arthroplasty. She had her surgery performed on April 12. So far, her postoperative course has been relatively uneventful. There has been no abnormal bleeding. Repeat hemoglobin postop remains stable. She was given a single dose of DDAVP prior to her surgery. PAST MEDICAL HISTORY: 1. Type 1 von Willebrand's disease as outlined above. 2. History of small cell lung carcinoma treated with chemotherapy and radiation many years ago. 3. History of right breast carcinoma. 4. Treatment related peripheral neuropathy. 5. 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 6. History of brain aneurysms, followed closely with observation. PAST SURGICAL HISTORY: 1. Hysterectomy. 2. Bladder sling surgery. 3. Rotator cuff surgery. 4. Back surgery. 5. Appendectomy. 6. Tonsillectomy. 7. Mastectomy. FAMILY HISTORY: Negative for any known a history of von Willebrand's disease. SOCIAL HISTORY: The patient is . She is a retired educator. She is a nonsmoker. REVIEW OF SYSTEMS: Patient denies any significant lower extremity pain or swelling. She denies chest pain, cough, exertional dyspnea. She denies abdominal pain. She denies fevers or chills. PHYSICAL EXAM: GENERAL: The patient is sitting comfortably in bed, in no acute distress. HEENT: Pupils are equal, sclerae are nonicteric. EXTREMITIES: Her left knee is bandaged. There is a small amount of serosanguineous drainage on the bandage itself with no evidence of significant active bleeding. There is no calf swelling involving the left lower extremity. NEUROLOGIC: The patient is alert, oriented, and appropriate. LAB: Postoperative CBC from today reveals a hemoglobin 11.2, hematocrit of 33.6. IMPRESSION: 1. History of type 1 von Willebrand's disease. 2. Recent elective left total knee arthroplasty. 3. Remote history of breast cancer. 4. Remote history of small cell lung carcinoma. Nevaeh is a pleasant 81-year-old female who has undergone an elective left total knee arthroplasty. She has a history of type 1 von Willebrand's disease. She was given DDAVP prior to her surgery. She has had no abnormal bleeding and has had a relatively uneventful postoperative course thus far. Given her normal von Willebrand's levels prior to surgery and the lack of significant bleeding postop, I do not believe she requires any further DDAVP administration at this point. She will likely be discharged tomorrow. At this point, I do not see any contraindication to administration of prophylactic anticoagulation. The decision of the timing of and type of prophylactic anticoagulation will be deferred to Dr. Jimenez. Please do not hesitate to contact me with any further questions or any new developments. /[id number]/MODL MTDD
[2017-04-14] MEDS: Mirabegron [Myrbetriq] 50 MG PO SCH (12:31)
--- NOTE | 2017-04-14 16:29 | ASMTCMCOM ---
CM Note CM Note Notes: Pt's family toured [facility] which is their SNF choice. Pt likely d/c tomorrow and Dulce w [facility] states there is bed availability. Date Signed: 04/14/2017 04:29 PM Electronically Signed By:CARLOS Palomino
[2017-04-14] MEDS: diphenhydrAMINE 25 MG CAP PO PRN (16:48)
--- NOTE | 2017-04-14 19:58 | SOAPPROG ---
SOAP Progress Note Assessment/Plan: Assessment: Plan: Subjective: sleeping comfortably nursing states the blood on her dressing hasn't changed since last night cont PT and pain meds ?transfer to rehab tomorrow? Objective: Vital Signs Temp Pulse Resp BP Pulse Ox 36.8 C 83 16 129/60 H 92 04/14/17 15:31 04/14/17 15:31 04/14/17 15:31 04/14/17 15:31 04/14/17 15:31 Laboratory Results 04/14/17 04:45 04/13/17 04/14/17 04/15/17 05:59 05:59 05:59 Intake Total 1855 1600 300 Output Total 700 850 400 Balance 1155 750 -100 ICD10 Worksheet Patient Problems: Problems Problem Status Onset chronic disease mgmt/transitional care Acute Chest pain Acute
[2017-04-14] MEDS: ESCITALOPRAM OXALATE 10 MG TAB PO SCH (23:08)
[2017-04-14] MEDS: PRAVASTATIN SODIUM 40 MG TAB PO SCH (23:09)
[2017-04-14] MEDS: PANTOPRAZOLE SODIUM 40 MG TAB PO SCH (23:09)
[2017-04-15] MEDS: TAPENTADOL HCL 50 MG TAB PO PRN (05:20)
[2017-04-15] MEDS: ACETAMINOPHEN 325 MG TAB PO SCH ×2 (05:20→14:35)
[2017-04-15] MEDS: KETOROLAC 30 MG/1 ML SDV IVP SCH ×2 (05:20→14:36)
[2017-04-15 07:46] VITALS: RESP 16
[2017-04-15] MEDS: FAMOTIDINE 20 MG TAB PO SCH (10:14)
[2017-04-15] MEDS: SENNOSIDES/DOCUSATE SODIUM TAB PO SCH (10:15)
[2017-04-15] MEDS: Mirabegron [Myrbetriq] 50 MG PO SCH ×2 (14:31→15:51)
[2017-04-15 15:57] VITALS: BP 158/67; PULSE 91; TEMP 98.2; O2SAT 91
--- NOTE | 2017-04-15 17:12 | PDIAF ---
- Diagnosis Code Status: Full Code - Medication Management Discharge Medications: Medications to Continue on Transfer Cholecalciferol Vit D3 [Vitamin D3 2000 units tab (OTC)] 2,000 units PO DAILY [Last Taken 04/05/17] Cyanocobalamin [Vitamin B12 (*)] 1,000 mcg PO DAILY 02/24/17 [Last Taken ] Docusate Sodium [Colace 100 MG (*)] 100 mg PO HS 02/24/17 [Last Taken 04/11/17] Escitalopram Oxalate [Lexapro 10 MG] 15 mg PO HS 02/24/17 [Last Taken 04/11/17] Melatonin [Melatonin 3 MG (*)] 3 mg PO HS 02/24/17 [Last Taken 04/11/17] Mirabegron [Myrbetriq] 50 mg PO DAILY 02/24/17 [Last Taken 04/11/17] Omeprazole 40 mg PO HS 02/24/17 [Last Taken 04/11/17] Pravastatin Sodium 40 mg PO HS 03/22/17 [Last Taken 04/11/17] amLODIPine BESYLATE [Norvasc 10 mg (*)] 10 mg PO DAILY 03/29/17 [Last Taken ] Tapentadol HCl [Nucynta 50 MG (*)] 50 mg PO Q4HRS PRN tab 04/15/17 [Last Taken Unknown] oxyCODONE IR [Oxycodone Ir (*)] 5 - 10 mg PO Q3HRS PRN tab 04/15/17 [Last Taken Unknown] Discharge Medications: Refer to the Discharge Home Medication list for PRN reason. - Orders Services needed: Physical Therapy Diet Recommendation: no restrictions on diet Jose Carlos Stockings Discontinue Date: 14 days after surgery Sutures/Pratik Site: suture. DC 2 weeks after surgery Activity/Weight Bearing Restrictions: wbat - Follow Up Care Current Providers and Referrals: NONE *PRIMARY CARE P,. [Primary Care Provider] -
--- NOTE | 2017-04-15 17:25 | ASMTCMCOM ---
CM Note CM Note Notes: Pt medically stable for d/c to [facility], RN to call report. Orders sent in [employer]. [facility] set up wc transport. Date Signed: 04/15/2017 05:25 PM Electronically Signed By:CARLOS Palomino
== END 2017-04-15 17:29 | DRG 470 ==
LOC: F3N 06:32
PROVIDERS: ADMIT Orthopaedic Surgery; ATTEND Orthopaedic Surgery
PROC: 0SRD0JZ Replacement of Left Knee Joint with Synthetic Substitute, Open Approach (ICD-10-PCS; principal; 2017-04-12 10:00)
DX: M17.12 Unilateral primary osteoarthritis, left knee (principal); D68.0 Von Willebrand disease; G62.9 Polyneuropathy, unspecified; Z85.3 Personal history of malignant neoplasm of breast; Z85.118 Personal history of other malignant neoplasm of bronchus and lung; Z92.3 Personal history of irradiation; Z86.12 Personal history of poliomyelitis
CPT/HCPCS: 97116-GP; 97162-GP; 97165-GO; 97530-GP; 97535-GO; G8978-GP-CK; G8979-GP-CI; G8987-GO-CK; G8988-GO-CH; J0171; J0690; J0735; J1885; J2370; J2405; J2597; J2704; J2795

== ENCOUNTER 2017-11-08 12:27 | Emergency (ER) | payer OTHER ==
--- NOTE | 2017-11-08 13:25 | EDPHY ---
H & P Stated Complaint: fall, head laceration Source: Patient Exam Limitations: No limitations - Personal History Current Tetanus Diphtheria and Acellular Pertussis (TDAP): Yes - Medical/Surgical History Hx Asthma: No Hx Chronic Respiratory Disease: Yes Hx Diabetes: No Hx Cardiac Disease: No Hx Renal Disease: No Hx Cirrhosis: No Hx Alcoholism: No Hx HIV/AIDS: No Hx Splenectomy or Spleen Trauma: No Other PMH: Breast Ca. Lung Ca. - Social History Smoking Status: Never smoked Time Seen by Provider: 11/08/17 12:48 HPI/ROS: CHIEF COMPLAINT: Mechanical fall, head injury HISTORY OF PRESENT ILLNESS: The patient presents to the ED with mechanical fall and resultant scalp hematoma laceration. The patient does have a history of lung and breast cancer which have been treated.. She complains of posterior headache and associated laceration. She denies any chest pain, back pain or extremity pain. The patient is not anticoagulated. The patient does report she has a mild form of von Willebrand's disorder. The patient otherwise has been well. Her primary care provider is Jennifer Montes. REVIEW OF SYSTEMS: A comprehensive 10 point review of systems is otherwise negative aside from elements mentioned in the history of present illness. (Damian Santiago) - Physical Exam Exam: General Appearance: Elderly female, no acute distress Head: Large occipital scalp hematoma with 3 cm laceration Eyes: Pupils equal, round, reactive ENT, Mouth: No hemotympanum, no oral trauma Neck: Nontender, trachea midline Respiratory: No chest wall tender, subcutaneous air, lungs clear bilaterally Cardiovascular: Regular rate and rhythm Abdomen: Abdomen is soft and nontender, pelvis stable Skin: No lacerations, No abrasion Back: No midline T/L/S pain Extremities: Nontender, full range of motion Neurological: A&Ox3, normal motor function, normal sensory exam, GCS 15 (Damian Santiago) Constitutional: Initial Vital Signs Temperature (C) 36.6 C 11/08/17 12:35 Heart Rate 74 11/08/17 12:35 Respiratory Rate 18 11/08/17 12:35 Blood Pressure 156/87 H 11/08/17 12:35 O2 Sat (%) 80 L 11/08/17 12:35 O2 Delivery Mode Nasal Cannula O2 (L/minute) 2 Allergies/Adverse Reactions: hydrocodone Allergy (Mild, Verified 11/08/17 12:54) Other-Enter Comments lisinopril Allergy (Mild, Verified 11/08/17 12:54) Rash atorvastatin [From Lipitor] Allergy (Verified 11/08/17 12:54) gabapentin Allergy (Verified 11/08/17 12:54) Other-Enter Comments pregabalin [From Lyrica] Allergy (Verified 11/08/17 12:54) simvastatin [From Zocor] Allergy (Verified 11/08/17 12:54) tramadol [From Ultram] Allergy (Verified 11/08/17 12:54) Unknown Home Medications: Medication Instructions Recorded RX: Cholecalciferol Vit D3 2,000 units PO DAILY 02/24/17 [Vitamin D3 2000 units tab (OTC)] RX: Cyanocobalamin [Vitamin B12 1,000 mcg PO DAILY 02/24/17 (*)] RX: Docusate Sodium [Colace 100 MG 100 mg PO HS 02/24/17 (*)] RX: Escitalopram Oxalate [Lexapro 15 mg PO HS 02/24/17 10 MG] RX: Melatonin [Melatonin 3 MG (*)] 3 mg PO HS 02/24/17 RX: Mirabegron [Myrbetriq] 50 mg PO DAILY 02/24/17 RX: Omeprazole 40 mg PO HS 02/24/17 RX: Pravastatin Sodium 40 mg PO HS 03/22/17 RX: amLODIPine BESYLATE [Norvasc 10 mg PO DAILY 03/29/17 10 mg (*)] RX: Tapentadol HCl [Nucynta 50 MG 50 mg PO Q4HRS PRN tab 04/15/17 (*)] RX: oxyCODONE IR [Oxycodone Ir (*)] 5 - 10 mg PO Q3HRS PRN tab 04/15/17 Medical Decision Making - Diagnostics Imaging Results: Imaging Impressions Cervical Spine CT 11/08/17 12:41 Impression: 1. No posttraumatic intracranial abnormality identified. 2. Left posterior parietal scalp hematoma. 2.CT Cervical Spine Without Contrast, 12:51 History: Trauma. Technique: Multislice helical CT through the cervical spine without contrast from the skull base to T1. Soft tissue and bone evaluation is performed. Sagittal and coronal reconstructions are obtained and reviewed. Dose reduction techniques were utilized. Findings: There is a levoscoliosis centered at the cervical thoracic junction, with the cervical spine being tilted toward the patient's right. There is a mild spondylolisthesis present at C4-C5 and C7-T1. There is calcification in the cervical disk spaces at C3-C4 and C4-C5. There is calcification of the anterior longitudinal ligament present between C4 and T1 and the posterior longitudinal ligament at C4-C5. The craniocervical junction is normally aligned and intact. The odontoid process is intact as is the C1-C2 alignment. There is osteoarthritic change of the joint between the anterior ring of C1 and the odontoid process with degenerative ossification of the transverse ligament posterior to the odontoid. There is scattered bilateral degenerative facet disease. There is some calcification of the posterior ligaments behind the T7 T1 disk space level. There is a central disk bulges at C2-C3. There is a diffuse disk bulge at C4-C5 and C5-C6 There is scattered small lytic areas in the spine and relatively large lytic area in the upper manubrium. As an 8 mm low-density lesion in the right mid thyroid gland. There is bilateral carotid bifurcation atherosclerotic calcification. There is emphysematous change at both lung apices associated with some atelectasis in the medial right apex that may be related to prior radiation therapy. Impression: 1. No acute posttraumatic abnormality identified. 2. Likely degenerative mild spondylolisthesis at C4-C5 and C7-T1. If there is concern for instability, consider obtaining lateral cervical flexion extension views. 3. Potential bony metastatic disease. This patient might benefit from a nuclear medicine bone scan. 4. Likely incidental right thyroid lesion. 5. Atherosclerosis and emphysema. Results called to Dr. Santiago at 1:20 pm. Final results are concordant with the initial interpretation. General information for patients regarding this examination can be found at [email or web address]. If you have questions or comments about this report, please contact me at (hospital) or [phone] (cell). Head CT 11/08/17 12:41 Impression: 1. No posttraumatic intracranial abnormality identified. 2. Left posterior parietal scalp hematoma. 2.CT Cervical Spine Without Contrast, 12:51 History: Trauma. Technique: Multislice helical CT through the cervical spine without contrast from the skull base to T1. Soft tissue and bone evaluation is performed. Sagittal and coronal reconstructions are obtained and reviewed. Dose reduction techniques were utilized. Findings: There is a levoscoliosis centered at the cervical thoracic junction, with the cervical spine being tilted toward the patient's right. There is a mild spondylolisthesis present at C4-C5 and C7-T1. There is calcification in the cervical disk spaces at C3-C4 and C4-C5. There is calcification of the anterior longitudinal ligament present between C4 and T1 and the posterior longitudinal ligament at C4-C5. The craniocervical junction is normally aligned and intact. The odontoid process is intact as is the C1-C2 alignment. There is osteoarthritic change of the joint between the anterior ring of C1 and the odontoid process with degenerative ossification of the transverse ligament posterior to the odontoid. There is scattered bilateral degenerative facet disease. There is some calcification of the posterior ligaments behind the T7 T1 disk space level. There is a central disk bulges at C2-C3. There is a diffuse disk bulge at C4-C5 and C5-C6 There is scattered small lytic areas in the spine and relatively large lytic area in the upper manubrium. As an 8 mm low-density lesion in the right mid thyroid gland. There is bilateral carotid bifurcation atherosclerotic calcification. There is emphysematous change at both lung apices associated with some atelectasis in the medial right apex that may be related to prior radiation therapy. Impression: 1. No acute posttraumatic abnormality identified. 2. Likely degenerative mild spondylolisthesis at C4-C5 and C7-T1. If there is concern for instability, consider obtaining lateral cervical flexion extension views. 3. Potential bony metastatic disease. This patient might benefit from a nuclear medicine bone scan. 4. Likely incidental right thyroid lesion. 5. Atherosclerosis and emphysema. Results called to Dr. Santiago at 1:20 pm. Final results are concordant with the initial interpretation. General information for patients regarding this examination can be found at [email or web address]. If you have questions or comments about this report, please contact me at (hospital) or [phone] (cell). Procedures: Procedure: Laceration repair. I was requested by Dr. Santiago to perform wound closure I explained the indications, risks and benefits for both laceration repair and anesthetic administration. Verbal consent was obtained from the patient. The laceration on the left occipital region was anesthetized using 0.5% bupivicaine with epinephrine. After anesthetic administered the patient was observed for a period of time and had no apparent adverse effects. The wound was cleaned, prepped, draped in normal sterile fashion and explored to its base. No foreign body seen, no foreign bodies palpated. There were no deep structures involved. No galea defects identified The wound was repaired with 4 benny. The wound repair was simple. The procedure was performed by myself. Patient has been informed that scarring will occur, although efforts have been made to minimize this. (Gino San) ED Course/Re-evaluation: The patient was taken for CT scan of her head and cervical spine which demonstrate no evidence of an acute intracranial hemorrhage, skull fracture or cervical spine fracture. The patient's laceration was repaired by the physician study assistant under my supervision. At this point time I do feel the patient can be discharged home with instructions to return to the ED for any headache, altered mental status, vomiting or other concerns. I have asked her to follow up with her primary care provider Dr. Montes to review the results of her CT scan specifically in light of some of the lytic lesions appreciated. (Damian Santiago) Differential Diagnosis: Differential diagnosis considered includes skull fracture, intracranial hemorrhage, cervical spine fracture, pathologic fracture, concussion, laceration (Damian Santiago) Departure - Departure Disposition: Home, Routine, Self-Care Clinical Impression: Scalp laceration, Von Willebrands disease Condition: Good Instructions: Staple Care (ED) Additional Instructions: 1. Please return to the ED in 10 days for staple removal. 2. Return to the ED immediately for any headache, vomiting, worsening symptoms or other concerns. 3. Please schedule a follow-up appointment with your primary care provider Dr. Montes to review the results of your CT scans specifically to determine if the changes noted to your bones represent a acute or chronic finding. Referrals: Filiberto Montes MD [Primary Care Provider] - As per Instructions
[2017-11-08 13:33] VITALS: BP 147/80
== END 2017-11-08 14:36 | disposition home or self-care (01) ==
LOC: EDUNIT# → SUPCPDRO 12:27
PROC: 0HQ0XZZ Repair Scalp Skin, External Approach (ICD-10-PCS; principal; 2017-11-08)
DX: S01.01XA Laceration without foreign body of scalp, initial encounter (principal); D68.0 Von Willebrand disease; Z85.118 Personal history of other malignant neoplasm of bronchus and lung; Z85.3 Personal history of malignant neoplasm of breast; W18.39XA Other fall on same level, initial encounter

== ENCOUNTER → 2017-11-14 | Outpatient (CLI) | payer OTHER | LOC: BMCIMAGING 08:21 | DX: Z13.820 Encounter for screening for osteoporosis (principal); M81.0 Age-related osteoporosis without current pathological fracture; Z78.0 Asymptomatic menopausal state ==

== ENCOUNTER 2018-08-11 21:32 | Emergency (ER) | payer OTHER ==
[2018-08-11 21:46] VITALS: BP 101/79
--- NOTE | 2018-08-11 21:47 | EDPHY ---
H & P Time Seen by Provider: 08/11/18 21:42 HPI/ROS: HPI: This is an 82-year-old female who presents with Chief Complaint: Tripped going up stairs, right wrist injury Location: Right wrist Quality: Injury, pain Duration: 45 min prior to arrival Signs and Symptoms: No bleeding, no radiation, no numbness, no weakness, no tingling, no incontinence, + decreased range of motion, no swelling, + pain, no fever Timing: Acute Severity: Moderate Context: Patient was walking up her stairs this evening to go to bed when she accidentally tripped on the 2nd stair from the top falling forward. She reports that she fell on her right outstretched hand. She felt immediate pain in the radial aspect of her right wrist and heard a "pop." Patient noted deformity in her right wrist with decreased range of motion secondary to pain. Denies LOC/head injury/neck pain/dizziness/nausea/vomiting/amnesia. She has no paresthesias, radiation, weakness. She has an allergy to Percocet. She is scheduled for what of seems to be a lumbar epidural steroid injection in 1 week and has not been taking any NSAIDs. Not on any blood thinners. Modifying Factors: None Comment: ROS: A comprehensive 10 system review of systems is otherwise negative aside from elements mentioned in the history of present illness. MEDICAL/SURGICAL/SOCIAL HISTORY: Medical history: Breast cancer, lung cancer, lumbar degenerative disc disease Surgical history: Denies Social history: Retired. Nonsmoker. CONSTITUTIONAL: Polite and cooperative elderly white female, family at bedside , awake and alert, no obvious distress HEENT: Atraumatic and normocephalic, PERRL, EOMI. Nares patent; no rhinorrhea; no nasal mucosal edema. Tympanic membranes clear. Oropharynx clear, no exudate and moist pink mucosa. Airway patent. No lymphadenopathy. No meningismus. Cardiovascular: Normal S1/S2, regular rate, regular rhythm, without murmur rub or gallop. PULMONARY/CHEST: Symmetrical and nontender. Clear to auscultation bilaterally. Good air movement. No accessory muscle usage. ABDOMEN: Soft, nondistended, nontender, no rebound, no guarding, no peritoneal signs, no masses or organomegaly. No CVAT. EXTREMITIES: 2/2 rate pulses, strength 5/5, right WRIST: Deformity noted to the radial aspect of the right wrist; decreased extension to 10, decreased flexion to 20, decreased radial deviation to 5, decreased ulnar deviation to 10, no scaphoid tenderness, no tenderness over ulnar styloid, moderate tenderness over radial styloid. Able to wiggle all fingers without any difficulty. no clubbing, no cyanosis or edema. NEUROLOGICAL: no focal neuro deficits. GCS 15. SKIN: Warm and dry, pallor, no erythema. no rash. Good capillary refill. Source: Patient Exam Limitations: No limitations - Medical/Surgical History Hx Asthma: No Hx Chronic Respiratory Disease: Yes Hx Diabetes: No Hx Cardiac Disease: No Hx Renal Disease: No Hx Cirrhosis: No Hx Alcoholism: No Hx HIV/AIDS: No Hx Splenectomy or Spleen Trauma: No Other PMH: Breast Ca. Lung Ca. - Social History Smoking Status: Never smoked Constitutional: Initial Vital Signs Temperature (C) 36.5 C 08/11/18 21:42 Heart Rate 73 08/11/18 21:42 Respiratory Rate 20 08/11/18 21:42 Blood Pressure 101/79 08/11/18 21:42 O2 Sat (%) 94 08/11/18 21:42 O2 Delivery Mode Room Air Allergies/Adverse Reactions: hydrocodone Allergy (Mild, Verified 11/08/17 12:54) Other-Enter Comments lisinopril Allergy (Mild, Verified 11/08/17 12:54) Rash acetaminophen [From Percocet] Allergy (Verified 08/11/18 21:42) atorvastatin [From Lipitor] Allergy (Verified 11/08/17 12:54) gabapentin Allergy (Verified 11/08/17 12:54) Other-Enter Comments oxycodone [From Percocet] Allergy (Verified 08/11/18 21:42) pregabalin [From Lyrica] Allergy (Verified 11/08/17 12:54) simvastatin [From Zocor] Allergy (Verified 11/08/17 12:54) tramadol [From Ultram] Allergy (Verified 11/08/17 12:54) Unknown Home Medications: Medication Instructions Recorded Cholecalciferol Vit D3 [Vitamin D3 2,000 units PO DAILY 02/24/17 2000 units tab (OTC)] Cyanocobalamin [Vitamin B12 (*)] 1,000 mcg PO DAILY 02/24/17 Docusate Sodium [Colace 100 MG (*)] 100 mg PO HS 02/24/17 Escitalopram Oxalate [Lexapro 10 15 mg PO HS 02/24/17 MG] Melatonin [Melatonin 3 MG (*)] 3 mg PO HS 02/24/17 Mirabegron [Myrbetriq] 50 mg PO DAILY 02/24/17 Omeprazole 40 mg PO HS 02/24/17 Pravastatin Sodium 40 mg PO HS 03/22/17 amLODIPine BESYLATE [Norvasc 10 mg 10 mg PO DAILY 03/29/17 (*)] Tapentadol HCl [Nucynta 50 MG (*)] 50 mg PO Q4HRS PRN tab 04/15/17 oxyCODONE IR [Oxycodone Ir (*)] 5 - 10 mg PO Q3HRS PRN tab 04/15/17 Hydrocodone/APAP 5/325 [[place] 1 - 2 tab PO Q4H PRN #10 tab 08/11/18 5/325 (*)] Medical Decision Making - Diagnostics Imaging Results: Imaging Impressions Wrist X-Ray 08/11/18 21:33 Impression: Comminuted, displaced Colles' fracture. Procedures: Procedure: Dislocation reduction. The dislocation of the right wrist was reduced using counter traction technique without complications. Post reduction the patient's neurovascular exam is normal. The procedure was performed by myself. Procedure: Splint placement. A right sugar-tong Ortho Glass splint and sling were applied. After application of the splint I returned and re-examined the patient. The splint was adequately immobilizing the joint and distal to the splint the patient's circulation and sensation was intact. ED Course/Re-evaluation: Vital signs reviewed and stable upon arrival. Fall was mechanical in nature Given [place] Right wrist x-ray ordered shows displaced closed distal radial fracture Reduced by myself Placed in sugar-tong splint, sling, orthopedic referral for likely ORIF No signs of neurovascular compromise/tenting of skin/compartment syndrome/ extremities and joints examined above and below area of concern and are neurovascularly intact. This patient was seen under the supervision of my secondary supervising physician. I evaluated and cared for this patient with attending. Differential Diagnosis: Differential diagnosis includes but is not limited to radial fracture, ulnar fracture, scaphoid fracture, metacarpal fracture, sprain, contusion, hematoma, nerve injury. - Data Points Medications Given: Discontinued Medications Hydrocodone Bitart/Acetaminophen ([place] 5/325) 1 tab PO EDNOW ONE Stop: 08/11/18 22:08 Last Admin: 08/11/18 22:19 Dose: 1 tab Hydrocodone Bitart/Acetaminophen ([place] 5/325mg Prepack#6) 1 btl TAKEHOME EDNOW ONE Stop: 08/11/18 22:08 Last Admin: 08/11/18 22:21 Dose: 1 btl Oxycodone/Acetaminophen (Percocet 5/325) 1 tab PO EDNOW ONE Stop: 08/11/18 21:52 Last Admin: 08/11/18 22:03 Dose: Not Given Oxycodone/Acetaminophen (Percocet 5/325mg Prepack#4) 1 btl TAKEHOME EDNOW ONE Stop: 08/11/18 21:52 Last Admin: 08/11/18 22:09 Dose: Not Given Departure - Departure Disposition: Home, Routine, Self-Care Clinical Impression: Closed fracture of right distal radius Qualifiers: Encounter type: initial encounter Fracture morphology: Colles' Qualified Code(s ): S52.531A - Colles' fracture of right radius, initial encounter for closed fracture Fracture, Colles, right, closed Qualifiers: Encounter type: initial encounter Qualified Code(s): S52.531A - Colles' fracture of right radius, initial encounter for closed fracture Condition: Good Instructions: Wrist Fracture in Adults (ED), How to Use a Sling (ED), Splint Care (ED), ORIF of a Wrist Fracture (DC) Additional Instructions: Keep the splint dry and in place until seen by Orthopedics. Wear the sling while out of bed for comfort. Take Tylenol 650 mg every 4 hours and/or Ibuprofen 600 mg every 8 hours with food as needed for pain. Use [place] every 6 hours as needed for severe/break through pain. Do not use Tylenol and [place] concomitantly. Apply ice for 30 minutes at a time; 2-3 times per day for the next 1-2 days. Follow up with Orthopedics in 5-7 days at which time they will evaluate you and likely recommend surgery. Referrals: Filiberto Montes MD [Primary Care Provider] - As per Instructions Renae Jimenez MD [Medical Doctor] - As per Instructions Prescriptions: Hydrocodone/APAP 5/325 [[place] 5/325 (*)] 1 - 2 tab PO Q4H PRN #10 tab PRN Reason: Pain, Moderate
[2018-08-11] MEDS ORDERED: OXYCODONE/APAP 5/325 TAB PO ONE (21:51)
[2018-08-11] MEDS: OXYCODONE/APAP 5/325MG PREPACK#4 BTL TAKEHOME ONE ×2 (22:03→22:09)
[2018-08-11] MEDS ORDERED: HYDROCOD/APAP 5/325 PREPACK#6 BTL TAKEHOME ONE (22:07)
[2018-08-11] MEDS ORDERED: HYDROCODONE/APAP 5/325 TAB PO ONE (22:07)
== END 2018-08-11 22:48 | disposition home or self-care (01) ==
PROC: 0RSPXZZ Reposition Left Wrist Joint, External Approach (ICD-10-PCS; principal; 2018-08-11)
DX: S52.531A Colles' fracture of right radius, initial encounter for closed fracture (principal); W10.8XXA Fall (on) (from) other stairs and steps, initial encounter; Y92.008 Other place in unspecified non-institutional (private) residence as the place of occurrence of the external cause; Z85.3 Personal history of malignant neoplasm of breast; Z85.118 Personal history of other malignant neoplasm of bronchus and lung
CPT/HCPCS: 25660; 73110; 99283; A4565

== ENCOUNTER 2018-08-16 14:04 | Day surgery (SDC) | payer OTHER ==
[2018-08-16] MEDS ORDERED: LIDOCAINE 1% 2 ML INJ ID PRN (14:13)
[2018-08-16] MEDS ORDERED: ceFAZolin 2 GM/DEXTROSE 100 ML IV ONE (14:13)
[2018-08-16] MEDS ORDERED: LR 1,000 ML IV ONE (14:13)
[2018-08-16] MEDS ORDERED: LR 1,000 ML IV SCH (14:13)
[2018-08-16] MEDS ORDERED: BUPIVACAINE 0.5% 30 ML SDV ONE (14:24)
[2018-08-16] MEDS ORDERED: LIDOCAINE 2% 100 MG/5 ML SYR ONE (14:47)
[2018-08-16] MEDS ORDERED: ROPIVACAINE HCL 150 MG/30 ML INJ ONE (14:47)
[2018-08-16] MEDS ORDERED: fentaNYL 100 MCG/2 ML INJ ONE (15:05)
[2018-08-16] MEDS ORDERED: PROPOFOL 200 MG/20 ML VIAL ONE (15:06)
[2018-08-16] MEDS ORDERED: HYDROCODONE/APAP 5/325 TAB PO PRN (15:42)
[2018-08-16] MEDS ORDERED: NALOXONE HCL 0.4 MG/ML INJ IVP PRN (15:42)
[2018-08-16] MEDS ORDERED: LR 500 ML IV PRN (15:42)
[2018-08-16] MEDS ORDERED: ALBUTEROL 3 ML DEYVIAL IH PRN (15:42)
[2018-08-16] MEDS ORDERED: ONDANSETRON 4 MG/2 ML VIAL IVP PRN (15:42)
[2018-08-16] MEDS ORDERED: fentaNYL 100 MCG/2 ML INJ IVP PRN (15:42)
== END 2018-08-16 17:55 | disposition home or self-care (01) ==
DX: S52.501A Unspecified fracture of the lower end of right radius, initial encounter for closed fracture (principal); S52.601A Unspecified fracture of lower end of right ulna, initial encounter for closed fracture; W10.9XXA Fall (on) (from) unspecified stairs and steps, initial encounter; D68.0 Von Willebrand disease; Z96.652 Presence of left artificial knee joint

== ENCOUNTER 2018-09-28 16:48 | Inpatient (IN) | payer OTHER | END 2018-10-02 11:29 | LOC: F3N 19:06 ==